=== PATIENT | male | born 1955 | race Caucasian/White ===

== ENCOUNTER 2016-07-01 06:27 | Day surgery (SDC) | payer MEDICAID ==
[~2016-07-01 06:27] MED LIST: Sodium Chloride 0.9% 1,000 ML IV SCH
[2016-07-01] MEDS ORDERED: Propofol 200 MG/20 ML SDV ONE ×3 (07:14→08:02)
[2016-07-01] MEDS ORDERED: Midazolam 1 MG/ML 2 ML SDV ONE (07:15)
[2016-07-01] MEDS ORDERED: fentaNYL 100 MCG/2 ML SDV ONE (07:15)
[2016-07-01 09:02] VITALS: BP 138/76
--- NOTE | 2016-07-01 14:11 | OR ---
DATE OF PROCEDURE: 07/01/2016 PROCEDURE: Colonoscopy. FINDINGS: 1. Very mild inflammation in the ileocecal valve (biopsied using cold biopsy forceps). 2. Rectal polyp, 5 mm, completely removed using cold biopsy forceps. COMPLICATIONS: None. ASP WEB DEVELOPER: None. ANESTHESIA: MAC. INDICATIONS: Screening colonoscopy. DESCRIPTION OF PROCEDURE: The patient was placed in left lateral decubitus position. Digital rectal exam was performed without abnormality. The scope was introduced and advanced atraumatically to the ileocecal valve. The ileocecal valve showed some very mild inflammation. This was biopsied using cold biopsy forceps. The scope was brought back to the remainder of the colon. In the rectum, there was a very small, probably hyperplastic polyp, which was completely removed using cold biopsy forceps. No abnormalities on retroflexion. The patient had diverticulosis, which was described as mild. This was most limited to sigmoid colon. Of note, the prep was moderately acceptable, and the patient consumed some apparent type of orange drink, thus making evaluation more challenging. The patient tolerated the procedure well. Luke Caldwell MD /[id number]
== END 2016-07-01 09:12 | disposition home or self-care (01) ==
LOC: JP.SDS 06:27
PROVIDERS: ATTEND Surgery
DX: Z12.11 Encounter for screening for malignant neoplasm of colon (principal); K52.9 Noninfective gastroenteritis and colitis, unspecified; K62.1 Rectal polyp; E11.49 Type 2 diabetes mellitus with other diabetic neurological complication; E78.2 Mixed hyperlipidemia; I25.10 Atherosclerotic heart disease of native coronary artery without angina pectoris; E11.621 Type 2 diabetes mellitus with foot ulcer; E11.42 Type 2 diabetes mellitus with diabetic polyneuropathy; E66.9 Obesity, unspecified; Z68.31 Body mass index [BMI] 31.0-31.9, adult; K29.70 Gastritis, unspecified, without bleeding; F33.9 Major depressive disorder, recurrent, unspecified; Z79.899 Other long term (current) drug therapy; Z79.4 Long term (current) use of insulin; Z79.82 Long term (current) use of aspirin; Z88.8 Allergy status to other drugs, medicaments and biological substances
CPT/HCPCS: 45380; J2250; J2704; J3010; J7040; 88305

== ENCOUNTER 2016-11-04 17:10 | Inpatient (IN) | payer MEDICAID ==
[2016-11-04] MEDS ORDERED: Acetaminophen 325 MG Tab PO PRN (17:59)
[2016-11-04] MEDS ORDERED: Ondansetron 4 MG Tab.DIS PO PRN (17:59)
[2016-11-04] MEDS ORDERED: Polyethylene Glycol 3350 Powder 17 GM Packet PO PRN (17:59)
[2016-11-04] MEDS ORDERED: Sodium Chloride 0.9% 10 ML Syringe FLUSH PRN (17:59)
[2016-11-04] MEDS: Sodium Chloride 0.9% 1,000 ML IV SCH (18:00)
--- NOTE | 2016-11-04 18:09 | PCM.HP ---
H&P History of Present Illness - General Date of Service: 11/04/16 Admit Problem/Dx: Admission Diagnosis/Problem Admission Diagnosis/Problem Osteomyelitis of toe of left foot Source of Information: Patient, Provider History Limitations: Reports: No Limitations - History of Present Illness Initial Comments - Free Text/Narative: Julius presents as a direct admission from the podiatry clinic where he presented with drainage from his left second toe. He first noticed this drainage yesterday that has progressed since that time. He does not report significant pain in his foot but does have a history of neuropathy. He has not had any fevers or chills. Appetite and energy have been normal. No complaints of shortness of breath, abdominal pain or vomiting. No recent diarrhea. He has been on clindamycin for most of the month after a recent episode of osteomyelitis in the same told that required partial amputation. He was evaluated in the clinic by Dr. Adame and there was concern for progressive osteomyelitis with worsening erosions noted on the second toe. He also had a foul-smelling and. Went drainage from the toe. He was sent for direct admission and IV antibiotics. - Related Data Allergies/Adverse Reactions: Allergies Allergy/AdvReac Type Severity Reaction Status Date / Time atorvastatin [From Lipitor] Allergy Cannot Verified 07/01/16 06:52 Remember Iakqrtn-Hqc-Oco Reductase Allergy Cannot Verified 07/01/16 06:52 Inhibitor Remember Home Medications: Home Meds Aspirin [Adult Low Dose Aspirin EC] 81 mg PO DAILY 06/16/13 [History] Gabapentin [Neurontin] 1,200 mg PO BID 06/16/13 [History] Insulin Glarg,Human.Rec.Analog [LantUS] 65 unit SQ DAILY 06/16/13 [History] Cholecalciferol (Vitamin D3) [Vitamin D3] 5,000 unit PO DAILY 06/27/16 [History] Dulaglutide [Trulicity] 1.5 mg SQ WEEKLY 06/27/16 [History] Fluticasone Propionate [Flonase] 1 spray YAAKOV DAILY PRN 06/27/16 [History] Gemfibrozil [Lopid] 600 mg PO BID 06/27/16 [History] Sildenafil Citrate [Sildenafil] 100 mg PO ASDIRECTED PRN 06/27/16 [History] Enalapril [Vasotec] 5 mg PO DAILY 11/04/16 [History] metFORMIN HCl [Metformin HCl] 1,000 mg PO BIDAC 11/04/16 [History] Past Medical History HEENT History: Reports: Cataract, Other (See Below) Other HEENT History: Pockets on the retina Respiratory History: Reports: Sleep Apnea Musculoskeletal History: Reports: Amputation Other Musculoskeletal History: Partial left big toe Endocrine/Metabolic History: Reports: Diabetes, Type II - Past Surgical History HEENT Surgical History: Reports: Cataract Surgery Social & Family History - Family History Cardiac: Denies: CAD - Tobacco Use Smoking Status *Q: Former Smoker Years of Tobacco use: 20 Packs/Tins Daily: 1 Used Tobacco, but Quit: Yes Month Tobacco Last Used: uknown Second Hand Smoke Exposure: No - Caffeine Use Caffeine Use: Reports: Coffee Other Caffeine Use: 1 cup per day coffee - Alcohol Use Days Per Week of Alcohol Use: 2 Number of Drinks Per Day: 1 Total Drinks Per Week: 2 Date of Last Drink: 10/23/16 - Recreational Drug Use Recreational Drug Use: No H&P Review of Systems - Review of Systems: Review Of Systems: See Below Free Text/Narrative: A complete 12 point review of systems was obtained. Pertinent positives and negatives are noted in the history of present illness. All other systems were reviewed and were negative except as noted. Exam - Exam Exam: See Below - Vital Signs Vital Signs: Last Vital Signs Temp 36.5 C 11/04/16 17:51 Pulse 95 11/04/16 17:51 Resp 18 11/04/16 17:51 BP 124/65 11/04/16 17:51 Pulse Ox 94 L 11/04/16 17:51 Weight: 91.626 kg - Exam Quality Assessment: No: Supplemental Oxygen General: Alert, Oriented, Cooperative. No: Mild Distress HEENT: Conjunctiva Clear, Mucosa Moist & [place]. No: Scleral Icterus Neck: Supple, Trachea Midline Lungs: Clear to Auscultation, Normal Respiratory Effort Cardiovascular: Regular Rate, Regular Rhythm. No: Systolic Murmur GI/Abdominal Exam: Normal Bowel Sounds, Soft, Non-Tender, No Distention Back Exam: Normal Inspection, Full Range of Motion Extremities: Pedal Edema (Trace bilateral ankle edema), Other (Left great toe is amputated and left second toe is wrapped with intact dressings and covered with Coban) Peripheral Pulses: 2+: Dorsalis Pedis (L), Dorsalis Pedis (R) Skin: Warm, Dry, Wound (2 shallow ulcerations over the right anterior meeks. These are dry do not have any drainage.) Neuro Extensive - Mental Status: Alert, Oriented x3, Nl Response to Commands Neuro Extensive - Motor, Sensory, Reflexes: CN II-XII Intact. No: Dysarthria, Abnormal Motor, Tremor Psychiatric: Alert, Normal Affect - Patient Data Lab Results Last 24 hrs: White count is normal creatinine is 1.7 with a baseline of 0.9 Lactic acid is 1.6 blood cultures are pending Imaging Impressions Last 24 hrs: X-ray of the left foot - images suspicious for osteomyelitis of the remainder of the second toe on the left *Q Meaningful Use (ADM) - VTE *Q VTE Criteria *Q: VTE Mechanical Contraindications *Q: Bilateral Lower Dermatits VTE Pharmacological Contraindications *Q: Patient Scheduled Surgery - VTE Risk Assess *Q Each Risk Factor Represents 1 Point: Minor Surgery Planned, Swollen Legs, Current, Obesity (BMI greater than 30) Total Score 1 Point Risk Factors: 3 Each Risk Factor Represents 2 Points: Age 60 - 74 Years Total Score 2 Point Risk Factors: 2 Each Risk Factor Represents 3 Points: None Total Score 3 Point Risk Factors: 0 Each Risk Factor Represents 5 Points: None Total Score 5 Point Risk Factors: 0 Venous Thromboembolism Risk Factor Score *Q: 5 - Stroke *Q Stroke Criteria *Q: - AMI *Q AMI Criteria *Q: - Problem List (1) Osteomyelitis of toe of left foot SNOMED Code(s): 39216336 ICD Code: M86.9 - OSTEOMYELITIS, UNSPECIFIED Status: Acute Current Visit : Yes Problem Details: Left second toe (2) Type 2 diabetes mellitus with complication, with long-term current use of insulin SNOMED Code(s): 51566976, 888194265, 747256579 ICD Code: E11.8 - TYPE 2 DIABETES MELLITUS WITH UNSPECIFIED COMPLICATIONS; Z79.4 - USP (CURRENT) USE OF INSULIN Status: Chronic Current Visit: Yes (3) Acute kidney injury SNOMED Code(s): 36163978 ICD Code: N17.9 - ACUTE KIDNEY FAILURE, UNSPECIFIED Status: Acute Current Visit: Yes Problem List Initiated/Reviewed/Updated: Yes Orders Last 24hrs: Active Orders 24 hr Category Date Time Status Patient Status [ADT] Routine ADT 11/04/16 17:59 Ordered Communication Order [RC] PRN Care 11/04/16 18:04 Ordered Communication Order [RC] PRN Care 11/04/16 18:04 Ordered Diabetes Education [RC] Click to Edit Care 11/04/16 18:04 Ordered Intake and Output [RC] QSHIFT Care 11/04/16 18:00 Ordered Notify Provider Consults [RC] ASDIRECTED Care 11/04/16 18:03 Ordered Notify Provider Vital Signs [RC] ASDIRECTED Care 11/04/16 18:00 Ordered Notify Provider [RC] PRN Care 11/04/16 18:04 Ordered Oxygen Therapy [RC] PRN Care 11/04/16 17:59 Ordered Peripheral IV Care [RC] . DIRECTED Care 11/04/16 18:03 Ordered Up With Assistance [RC] ASDIRECTED Care 11/04/16 17:59 Ordered VTE/DVT Education [RC] Per Unit Routine Care 11/04/16 17:59 Ordered Vital Signs [RC] Q4H Care 11/04/16 17:59 Ordered Consult to Physician [CONS] Routine Cons 11/04/16 17:59 Ordered Consistent Carbohydrate Diet [DIET] Diet 11/04/16 Dinner Ordered Nothing per Oral After Midnight Diet [DIET] Diet 11/05/16 Breakfast Ordered BASIC METABOLIC PANEL,BMP [CHEM] AM Lab 11/05/16 05:11 Ordered BASIC METABOLIC PANEL,BMP [CHEM] AM Lab 11/06/16 05:11 Ordered CBC W/O DIFF,HEMOGRAM [HEME] AM Lab 11/05/16 05:11 Ordered CBC W/O DIFF,HEMOGRAM [HEME] AM Lab 11/06/16 05:11 Ordered GLUCOSE POC LAB TO COLLECT [POC] QIDACANDBED Lab 11/04/16 21:00 Ordered GLUCOSE POC LAB TO COLLECT [POC] QIDACANDBED Lab 11/05/16 07:30 Ordered GLUCOSE POC LAB TO COLLECT [POC] QIDACANDBED Lab 11/05/16 11:30 Ordered GLUCOSE POC LAB TO COLLECT [POC] QIDACANDBED Lab 11/05/16 16:30 Ordered GLUCOSE POC LAB TO COLLECT [POC] QIDACANDBED Lab 11/05/16 21:00 Ordered GLUCOSE POC LAB TO COLLECT [POC] QIDACANDBED Lab 11/06/16 07:30 Ordered GLUCOSE POC LAB TO COLLECT [POC] QIDACANDBED Lab 11/06/16 11:30 Ordered GLUCOSE POC LAB TO COLLECT [POC] QIDACANDBED Lab 11/06/16 16:30 Ordered GLUCOSE POC LAB TO COLLECT [POC] QIDACANDBED Lab 11/06/16 21:00 Ordered GLUCOSE POC LAB TO COLLECT [POC] QIDACANDBED Lab 11/07/16 07:30 Ordered GLUCOSE POC LAB TO COLLECT [POC] QIDACANDBED Lab 11/07/16 11:30 Ordered GLUCOSE POC LAB TO COLLECT [POC] QIDACANDBED Lab 11/07/16 16:30 Ordered GLUCOSE POC LAB TO COLLECT [POC] QIDACANDBED Lab 11/07/16 21:00 Ordered GLUCOSE POC LAB TO COLLECT [POC] QIDACANDBED Lab 11/08/16 07:30 Ordered GLUCOSE POC LAB TO COLLECT [POC] QIDACANDBED Lab 11/08/16 11:30 Ordered GLUCOSE POC LAB TO COLLECT [POC] QIDACANDBED Lab 11/08/16 16:30 Ordered GLUCOSE POC LAB TO COLLECT [POC] QIDACANDBED Lab 11/08/16 21:00 Ordered GLUCOSE POC LAB TO COLLECT [POC] QIDACANDBED Lab 11/09/16 07:30 Ordered GLUCOSE POC LAB TO COLLECT [POC] QIDACANDBED Lab 11/09/16 11:30 Ordered GLUCOSE POC LAB TO COLLECT [POC] QIDACANDBED Lab 11/09/16 16:30 Ordered GLUCOSE POC LAB TO COLLECT [POC] QIDACANDBED Lab 11/09/16 21:00 Ordered GLUCOSE POC LAB TO COLLECT [POC] QIDACANDBED Lab 11/10/16 07:30 Ordered Acetaminophen [Tylenol] Med 11/04/16 17:59 Ordered 650 mg PO Q4H PRN Acetaminophen/HYDROcodone [[place] 325-5 MG] Med 11/04/16 17:59 Ordered 1 tab PO Q4H PRN Aspirin [Halfprin] Med 11/05/16 09:00 Ordered 81 mg PO DAILY Docusate Sodium/Sennosides [Senna Plus] Med 11/04/16 17:59 Ordered 1 tab PO BID PRN Gabapentin [Neurontin] Med 11/04/16 21:00 Ordered 1,200 mg PO BID Gemfibrozil [Lopid] Med 11/04/16 21:00 Ordered 600 mg PO BID Insulin Aspart [NovoLOG] Med 11/04/16 18:15 Ordered See Protocol SUBCUT ASDIRECTED Insulin Detemir [Levemir] Med 11/05/16 09:00 Ordered 40 unit SUBCUT DAILY Meropenem [Merrem] 1 gm Med 11/04/16 18:15 Ordered Sodium Chloride 0.9% [Normal Saline] 50 ml IV Q12H Ondansetron [Zofran ODT] Med 11/04/16 17:59 Ordered 4 mg PO Q6H PRN Polyethylene Glycol 3350 [MiraLAX] Med 11/04/16 17:59 Ordered 17 gm PO DAILY PRN Sodium Chloride 0.9% @ 125 MLS/HR (1000ml) Med 11/04/16 18:00 Ordered Sodium Chloride 0.9% [Normal Saline] 1,000 ml IV ASDIRECTED Sodium Chloride 0.9% [Saline Flush] Med 11/04/16 17:59 Ordered 10 ml FLUSH ASDIRECTED PRN Vancomycin 1.5 gm Med 11/04/16 19:00 Ordered Sodium Chloride 0.9% [Normal Saline] 250 ml IV Q24H Peripheral IV Insertion Adult [OM.PC] Routine Oth 11/04/16 17:59 Ordered VTE Mechanical Contraindications [AST] Per Unit Routine Oth 11/04/16 17:59 Ordered VTE Pharmacological Contraindications [AST] Per Unit Oth 11/04/16 17:59 Ordered Routine Resuscitation Status Routine Resus Stat 11/04/16 17:59 Ordered Assessment/Plan Comment:: Assessment and plan - Osteomyelitis of the left second toe - fairly rapid progression of infection though patient is not systemically ill at this time. He has been on recent antibiotics. Surgical intervention is planned tomorrow morning. I believe he is an appropriate surgical candidate and is in optimal achievable medical condition at this time. With recent antibiotics he would benefit from expanded spectrum antibiotic coverage until cultures can be finalized. Blood cultures have been collected. -Meropenem and vancomycin with renal dosing -Consult to Dr. Adame for surgical intervention in the morning with second toe amputation planned -Pain control -Follow-up cultures Acute kidney injury - probably secondary to infection with possible contribution from his HERBIE inhibitor. Blood pressures on the low side in the clinic but normal here so far. 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 Has been better controlled as of late. -Partial dose of long-acting insulin with surgery planned -Sliding-scale insulin -4 times a day Accu-Cheks Maintenance issues - - DVT prophylaxis - enoxaparin will be initiated postoperatively - GI prophylaxis - not indicated - Nutrition - diabetic diet, nothing by mouth after midnight - Anderson catheter - not indicated CODE STATUS - full code Admission justification - This patient will be admitted for inpatient services and is medically appropriate meeting medical necessity for inpatient admission as outlined in my documentation. I reasonably expect the patient will require inpatient services that span a period time over 2 midnights. I reasonably expect this patient to be discharged or transferred within 96 hours after admission to the [facility]. Disposition - anticipate discharge to home after the hospital stay Primary care physician - Dr Trena Avalos M.D.
[2016-11-04] MEDS ORDERED: Gabapentin 300 MG Cap PO SCH (21:00)
[2016-11-04] MEDS ORDERED: Gemfibrozil 600 MG Tab PO SCH (21:00)
[2016-11-05] MEDS: Sodium Chloride 0.9% 1,000 ML IV SCH (03:48)
[2016-11-05] MEDS ORDERED: Lidocaine 2% 20 ML MDV ONE (07:19)
[2016-11-05] MEDS ORDERED: Bupivacaine 0.5% 50 ML MDV ONE (07:19)
[2016-11-05] MEDS: Gemfibrozil 600 MG Tab PO SCH ×2 (08:37→16:28)
[2016-11-05] MEDS ORDERED: Propofol 200 MG/20 ML SDV ONE (09:00)
[2016-11-05] MEDS ORDERED: fentaNYL 100 MCG/2 ML SDV ONE (09:00)
[2016-11-05] MEDS ORDERED: Insulin Detemir 100 Units/ML 3 ML Pen SUBCUT SCH (09:00)
[2016-11-05] MEDS ORDERED: Midazolam 1 MG/ML 2 ML SDV ONE (09:00)
[2016-11-05] MEDS: Aspirin 81 MG Tab.EC PO SCH (10:42)
[2016-11-05] MEDS: Gabapentin 400 MG Cap PO SCH ×2 (10:42→22:12)
--- NOTE | 2016-11-05 11:29 | OR ---
DATE OF PROCEDURE: 11/05/2016 BASTING MARKER: None. PREOPERATIVE DIAGNOSIS: Osteomyelitis, left 2nd toe. POSTOPERATIVE DIAGNOSIS: Osteomyelitis, left 2nd toe. PROCEDURE: Amputation of the left 2nd toe. ANESTHESIA: Local with IV sedation. HEMOSTASIS: None. ESTIMATED BLOOD LOSS: 10 mL. MATERIALS: None. INJECTABLES: None. PATHOLOGY: Left 2nd toe. CONDITION: Stable. INDICATIONS FOR SURGERY: Osteomyelitis, left 2nd toe. PROCEDURE IN DETAIL: The patient was brought to the operating room, placed on the operating table in supine position. Following IV sedation, anesthesia was obtained with a total of 10 mL of Marcaine 0.5% plain with lidocaine 2% plain. Left foot was then scrubbed, prepped, and draped in the usual aseptic manner, raised to 60 degrees for hemostasis and exsanguinated. No Esmarch was used. No tourniquet was inflated. A tennis racquet incision was made around the base of the left 2nd toe. Incisions were deepened straight down to bone and the left 2nd toe was disarticulated at the metatarsophalangeal joint. The skin at the edges of the tissue were checked to make sure that they were healthy and they were and the head of the 2nd metatarsal was hard and healthy with no discoloration. The incision was flushed out with copious amounts of sterile saline and then skin closure was obtained with 3- 0 and 4-0 nylon in a simple interrupted configuration and two small Jarad drains were caught down to 2 to 3 mm wide strips and placed one in the distal aspect of the incision, one in the proximal aspect of the incision. The foot was dressed with dry sterile dressing consisting of Xeroform, 4x4s, Kerlix, and Coban. The patient was returned to recovery room with vital signs stable and vascular status intact to both feet. The patient was told to remain on orders and continue to remain nonweightbearing on the left foot and to keep dressings clean, dry, and intact for two days, and change and remove drains. Podiatry to follow in one week. Dalton Adame DPM /[id number]
[2016-11-05] MEDS ORDERED: Sodium Chloride 0.9% 1,000 ML IV SCH (11:30)
--- NOTE | 2016-11-05 11:31 | PCM.PN ---
- General Info Date of Service: 11/05/16 Functional Status: Reports: Pain Controlled, Tolerating Diet - Review of Systems General: Denies: Fever Gastrointestinal: Denies: Nausea Musculoskeletal: Denies: Foot Pain Systems Review Comment:: no acute events overnight. Blood pressure and vital signs have been stable. Blood sugars well-controlled. No significant pain in his foot. He had an uneventful amputation of the left second toe. No material was available for culture. Tolerating current antibiotics. - Patient Data Vitals - Most Recent: Last Vital Signs Temp 36.6 C 11/05/16 10:00 Pulse 83 11/05/16 10:00 Resp 10 L 11/05/16 10:00 BP 129/67 11/05/16 10:00 Pulse Ox 95 11/05/16 10:00 Weight - Most Recent: 91.626 kg I&O - Last 24 Hours: Intake & Output 11/04/16 11/05/16 11/05/16 22:59 06:59 14:59 Intake Total 568 3860 360 Output Total 1000 3700 250 Balance -432 160 110 Lab Results Last 24 Hours: Laboratory Results - last 24 hr 11/05/16 11/05/16 Range/Units 05:11 05:11 WBC 7.7 (4.5-11.0) K/uL RBC 4.15 L (4.30-5.90) M/uL Hgb 11.8 L (12.0-15.0) g/dL Hct 35.5 L (40.0-54.0) % MCV 86 (80-98) fL MCH 28 (27-31) pg MCHC 33 (32-36) % Plt Count 264 (150-400) K/uL Sodium 137 L (140-148) mmol/L Potassium 4.2 (3.6-5.2) mmol/L Chloride 104 (100-108) mmol/L Carbon Dioxide 24 (21-32) mmol/L Anion Gap 13.2 (5.0-14.0) mmol/L BUN 23 H (7-18) mg/dL Creatinine 1.0 (0.8-1.3) mg/dL Est Cr Clr Drug Dosing 75.05 mL/min Estimated GFR (MDRD) > 60 (>60) Glucose 98 (74-106) mg/dL Calcium 9.0 (8.5-10.1) mg/dL Med Orders - Current: Current Medications Acetaminophen (Tylenol) 650 mg PO Q4H PRN PRN Reason: Pain (Mild 1-3)/fever Hydrocodone Bitart/Acetaminophen ([place] 325-5 Mg) 1 tab PO Q4H PRN PRN Reason: Pain (moderate 4-6) Aspirin (Halfprin) 81 mg PO DAILY [facility] Last Admin: 11/05/16 10:42 Dose: 81 mg Gabapentin (Neurontin) 1,200 mg PO BID [facility] Last Admin: 11/05/16 10:42 Dose: 1,200 mg Gemfibrozil (Lopid) 600 mg PO BIDAC [facility] Last Admin: 11/05/16 08:37 Dose: Not Given Meropenem 1 gm/ Sodium (Chloride) 50 mls @ 100 mls/hr IV Q8H [facility] Vancomycin HCl 1.5 gm/ Sodium (Chloride) 250 mls @ 166.667 mls/hr IV Q12H [facility] Last Admin: 11/05/16 08:37 Dose: 166.667 mls/hr Sodium Chloride (Normal Saline) 1,000 mls @ 25 mls/hr IV ASDIRECTED [facility] Insulin Aspart (Novolog) 0 unit SUBCUT ASDIRECTED [facility] PRN Reason: Protocol Insulin Detemir (Levemir) 65 unit SUBCUT DAILY [facility] Ondansetron HCl (Zofran Odt) 4 mg PO Q6H PRN PRN Reason: Nausea able to take PO Pneumococcal Polyvalent Vaccine (Pneumovax 23) 0.5 ml IM .ONCE ONE Stop: 11/06/16 10:01 Polyethylene Glycol (Miralax) 17 gm PO DAILY PRN PRN Reason: Constipation Senna/Docusate Sodium (Senna Plus) 1 tab PO BID PRN PRN Reason: Constipation Sodium Chloride (Saline Flush) 10 ml FLUSH ASDIRECTED PRN PRN Reason: Keep Vein Open Discontinued Medications Bupivacaine HCl (Marcaine 0.5%) Confirm Administered Dose 50 ml .ROUTE .STK-MED ONE Stop: 11/05/16 07:20 Last Admin: 11/05/16 09:10 Dose: 5 ml Fentanyl (Sublimaze) Confirm Administered Dose 100 mcg .ROUTE .STK-MED ONE Stop: 11/05/16 09:01 Gabapentin (Neurontin) 1,200 mg PO BID [facility] Last Admin: 11/04/16 20:22 Dose: 1,200 mg Gemfibrozil (Lopid) 600 mg PO BID [facility] Last Admin: 11/04/16 20:34 Dose: 600 mg Sodium Chloride (Normal Saline) 1,000 mls @ 125 mls/hr IV ASDIRECTED [facility] Last Admin: 11/05/16 03:48 Dose: 125 mls/hr Meropenem 1 gm/ Sodium (Chloride) 50 mls @ 100 mls/hr IV Q12H [facility] Last Admin: 11/05/16 05:14 Dose: 100 mls/hr Vancomycin HCl 1.5 gm/ Sodium (Chloride) 250 mls @ 150 mls/hr IV Q24H [facility] Last Admin: 11/04/16 20:20 Dose: 150 mls/hr Insulin Detemir (Levemir) 40 unit SUBCUT DAILY [facility] Last Admin: 11/05/16 10:42 Dose: 40 units Lidocaine HCl (Xylocaine 2%) Confirm Administered Dose 20 ml .ROUTE .STK-MED ONE Stop: 11/05/16 07:20 Last Admin: 11/05/16 09:10 Dose: 5 ml Midazolam HCl (Versed 1 Mg/Ml) Confirm Administered Dose 2 mg .ROUTE .STK-MED ONE Stop: 11/05/16 09:01 Propofol (Diprivan 20 Ml) Confirm Administered Dose 200 mg .ROUTE .STK-MED ONE Stop: 11/05/16 09:01 - Exam Quality Assessment: No: Supplemental Oxygen General: Alert, Oriented, Cooperative, No Acute Distress Neck: Supple Lungs: Normal Respiratory Effort GI/Abdominal Exam: Soft, No Distention Extremities: No Pedal Edema Skin: Warm, Dry Psy/Mental Status: Alert, Normal Affect - Problem List & Annotations (1) Osteomyelitis of toe of left foot SNOMED Code(s): 88268053 Code(s): M86.9 - OSTEOMYELITIS, UNSPECIFIED Status: Acute Current Visit: Yes Annotation/Comment:: Left second toe (2) Type 2 diabetes mellitus with complication, with long-term current use of insulin SNOMED Code(s): 80479639, 866107256, 757149148 Code(s): E11.8 - TYPE 2 DIABETES MELLITUS WITH UNSPECIFIED COMPLICATIONS; 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 Status: Chronic Current Visit: Yes (3) Acute kidney injury SNOMED Code(s): 87317229 Code(s): N17.9 - ACUTE KIDNEY FAILURE, UNSPECIFIED Status: Acute Current Visit: Yes - Problem List Review Problem List Initiated/Reviewed/Updated: Yes - My Orders Last 24 Hours: My Active Orders 11/04/16 17:59 Patient Status [ADT] Routine Oxygen Therapy [RC] PRN Up With Assistance [RC] ASDIRECTED VTE/DVT Education [RC] Per Unit Routine Vital Signs [RC] Q4H Consult to Physician [CONS] Routine Acetaminophen [Tylenol] 650 mg PO Q4H PRN Acetaminophen/HYDROcodone [[place] 325-5 MG] 1 tab PO Q4H PRN Docusate Sodium/Sennosides [Senna Plus] 1 tab PO BID PRN Ondansetron [Zofran ODT] 4 mg PO Q6H PRN Polyethylene Glycol 3350 [MiraLAX] 17 gm PO DAILY PRN Sodium Chloride 0.9% [Saline Flush] 10 ml FLUSH ASDIRECTED PRN Peripheral IV Insertion Adult [OM.PC] Routine VTE Mechanical Contraindications [AST] Per Unit Routine VTE Pharmacological Contraindications [AST] Per Unit Routine Resuscitation Status Routine 11/04/16 18:00 Intake and Output [RC] QSHIFT Notify Provider Vital Signs [RC] ASDIRECTED 11/04/16 18:03 Notify Provider Consults [RC] ASDIRECTED Peripheral IV Care [RC] . DIRECTED 11/04/16 18:04 Communication Order [RC] PRN Communication Order [RC] PRN Diabetes Education [RC] Click to Edit Notify Provider [RC] PRN 11/04/16 18:15 Insulin Aspart [NovoLOG] See Protocol SUBCUT ASDIRECTED 11/05/16 07:30 Gemfibrozil [Lopid] 600 mg PO BIDAC 11/05/16 09:00 Aspirin [Halfprin] 81 mg PO DAILY Gabapentin [Neurontin] 1,200 mg PO BID Vancomycin 1.5 gm Sodium Chloride 0.9% [Normal Saline] 250 ml IV Q12H 11/05/16 10:36 Central Line Assessment [RC] QSHIFT Central Line PICC Insertion [Central Venous Line Insertion] [OM.PC] Routine 11/05/16 11:30 Sodium Chloride 0.9% [Normal Saline] 1,000 ml IV ASDIRECTED 11/05/16 14:00 Meropenem [Merrem] 1 gm Sodium Chloride 0.9% [Normal Saline] 50 ml IV Q8H 11/05/16 16:30 GLUCOSE POC LAB TO COLLECT [POC] QIDACANDBED 11/05/16 21:00 GLUCOSE POC LAB TO COLLECT [POC] QIDACANDBED 11/06/16 05:11 BASIC METABOLIC PANEL,BMP [CHEM] AM CBC W/O DIFF,HEMOGRAM [HEME] AM 11/06/16 07:30 GLUCOSE POC LAB TO COLLECT [POC] QIDACANDBED 11/06/16 09:00 Insulin Detemir [Levemir] 65 unit SUBCUT DAILY 11/06/16 10:00 Pneumococcal Polyvalent-23 Vac [Pneumovax 23] 0.5 ml IM .ONCE ONE 11/06/16 11:30 GLUCOSE POC LAB TO COLLECT [POC] QIDACANDBED 11/06/16 16:30 GLUCOSE POC LAB TO COLLECT [POC] QIDACANDBED 11/06/16 21:00 GLUCOSE POC LAB TO COLLECT [POC] QIDACANDBED 11/07/16 07:30 GLUCOSE POC LAB TO COLLECT [POC] QIDACANDBED 11/07/16 08:45 VANCOMYCIN TROUGH [CHEM] Timed 11/07/16 11:30 GLUCOSE POC LAB TO COLLECT [POC] QIDACANDBED 11/07/16 16:30 GLUCOSE POC LAB TO COLLECT [POC] QIDACANDBED 11/07/16 21:00 GLUCOSE POC LAB TO COLLECT [POC] QIDACANDBED 11/08/16 07:30 GLUCOSE POC LAB TO COLLECT [POC] QIDACANDBED 11/08/16 11:30 GLUCOSE POC LAB TO COLLECT [POC] QIDACANDBED 11/08/16 16:30 GLUCOSE POC LAB TO COLLECT [POC] QIDACANDBED 11/08/16 21:00 GLUCOSE POC LAB TO COLLECT [POC] QIDACANDBED 11/09/16 07:30 GLUCOSE POC LAB TO COLLECT [POC] QIDACANDBED 11/09/16 11:30 GLUCOSE POC LAB TO COLLECT [POC] QIDACANDBED 11/09/16 16:30 GLUCOSE POC LAB TO COLLECT [POC] QIDACANDBED 11/09/16 21:00 GLUCOSE POC LAB TO COLLECT [POC] QIDACANDBED 11/10/16 07:30 GLUCOSE POC LAB TO COLLECT [POC] QIDACANDBED - Plan Plan:: Assessment and plan - Osteomyelitis of the left second toe - status post amputation of the left second toe on 11/05. Case discussed with Dr. Adame and 2 weeks of IV antibiotics was recommended. -Meropenem and vancomycin x48 hours -PICC line placement -plan for 2 weeks of IV antibiotic therapy with vancomycin and less cultures dictate otherwise -Pain control -Follow-up cultures Acute kidney injury - probably secondary to infection with possible contribution from his HERBIE inhibitor. kidney function back to normal. 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 blood sugars well-controlled. -restart usual dosage tomorrow morning -Sliding-scale insulin -4 times a day Accu-Cheks Maintenance issues - - DVT prophylaxis - enoxaparin will be initiated postoperatively - GI prophylaxis - not indicated - Nutrition - diabetic diet, nothing by mouth after midnight Disposition - anticipate discharge to home after the hospital stay, likely after 48 additional hours of IV antibiotic therapy Primary care physician - Dr Trena Avalos M.D.
[2016-11-05] MEDS: Acetaminophen/HYDROcodone 325-5 MG Tab PO PRN (19:25)
[2016-11-05] MEDS: Insulin Aspart 100 Units/ML 3 ML Pen SUBCUT SCH (22:30)
[2016-11-06] MEDS: Gemfibrozil 600 MG Tab PO SCH ×2 (08:02→17:09)
[2016-11-06] MEDS: Gabapentin 400 MG Cap PO SCH ×2 (08:02→21:54)
[2016-11-06] MEDS: Aspirin 81 MG Tab.EC PO SCH (08:03)
[2016-11-06] MEDS: Insulin Detemir 100 Units/ML 3 ML Pen SUBCUT SCH (08:04)
[2016-11-06] MEDS: Insulin Aspart 100 Units/ML 3 ML Pen SUBCUT SCH ×4 (08:05→21:53)
[2016-11-06] MEDS: Acetaminophen/HYDROcodone 325-5 MG Tab PO PRN ×2 (08:07→19:42)
[2016-11-06] MEDS ORDERED: Pneumococcal Polyvalent-23 Vaccine 0.5 ML SDV IM ONE (10:00)
--- NOTE | 2016-11-06 12:19 | CONS ---
DATE OF SERVICE: 11/06/2016 REFERRING PHYSICIAN: CONSULTING PHYSICIAN: Luke Caldwell MD REASON FOR CONSULTATION: Evaluation of left 2nd toe. HISTORY OF PRESENT ILLNESS: This is a 61-year-old male, who on 04/24/2016 underwent a left 2nd toe amputation for osteomyelitis. This was noted in the clinic by Dr. Adame where he had drainage from this and was subsequently diagnosed with osteomyelitis. PAST MEDICAL HISTORY: Type 2 diabetes, history of previous toe amputation, sleep apnea, including cataract surgery. SOCIAL HISTORY: He is a former smoker. FAMILY HISTORY: Noncontributory. REVIEW OF SYSTEMS: GENERAL: The patient has no concerns. HEENT: History of cataracts. NECK: No symptoms. CARDIOVASCULAR: No history of myocardial infarction. RESPIRATORY: No history of asthma. GASTROINTESTINAL: No symptoms. NEUROLOGICAL: No symptoms. PSYCH: No symptoms. The remainder of systems was reviewed and is negative. PHYSICAL EXAMINATION: VITAL SIGNS: Temperature 95.5, blood pressure 126/69, respirations 16, and pulse 98%. HEENT: Pupils are equal. NECK: Supple. LUNGS: Clear. CARDIOVASCULAR: Regular rhythm and rate. ABDOMEN: Bowel sounds positive. EXTREMITIES: Full range of motion. The toe amputation site shows no evidence of osteomyelitis or infection. IMAGING: I did review the MRI which showed distal phalanx erosions, cellulitis, and concern for osteomyelitis. ASSESSMENT: Status post toe amputation. PLAN: Continue the same dressing plan, Xeroform with using HERBIE and Kerlix. I will leave the drain in today. He is a to work on activity per Dr. Adame per previous orders. I will continue to follow him. Luke Caldwell MD /[phone]
--- NOTE | 2016-11-06 15:13 | PCM.PN ---
- General Info Date of Service: 11/06/16 Functional Status: Reports: Pain Controlled, Tolerating Diet - Review of Systems General: Denies: Fever Musculoskeletal: Reports: Foot Pain Systems Review Comment:: No acute events overnight. No fevers. Minimal pain in his foot. Blood sugars have been acceptable. He is getting around well with his scooter. Blood cultures remain negative. - Patient Data Vitals - Most Recent: Last Vital Signs Temp 35.5 C 11/06/16 12:02 Pulse 76 11/06/16 12:02 Resp 16 11/06/16 12:02 BP 122/71 11/06/16 12:02 Pulse Ox 95 11/06/16 12:02 Weight - Most Recent: 91.626 kg I&O - Last 24 Hours: Intake & Output 11/06/16 11/06/16 11/06/16 06:59 14:59 22:59 Intake Total 970 1090 Output Total 1600 2500 Balance -630 -1410 Lab Results Last 24 Hours: Laboratory Results - last 24 hr 11/06/16 11/06/16 11/06/16 Range/Units 05:45 05:45 08:50 WBC 5.9 (4.5-11.0) K/uL RBC 4.13 L (4.30-5.90) M/uL Hgb 11.5 L (12.0-15.0) g/dL Hct 35.4 L (40.0-54.0) % MCV 86 (80-98) fL MCH 28 (27-31) pg MCHC 33 (32-36) % Plt Count 272 (150-400) K/uL Sodium 138 L (140-148) mmol/L Potassium 4.6 (3.6-5.2) mmol/L Chloride 104 (100-108) mmol/L Carbon Dioxide 27 (21-32) mmol/L Anion Gap 11.6 (5.0-14.0) mmol/L BUN 18 (7-18) mg/dL Creatinine 0.9 (0.8-1.3) mg/dL Est Cr Clr Drug Dosing 83.70 mL/min Estimated GFR (MDRD) > 60 (>60) Glucose 158 H (74-106) mg/dL Calcium 8.9 (8.5-10.1) mg/dL Vancomycin Trough 10.2 (10.0-20.0) ug/mL Med Orders - Current: Current Medications Acetaminophen (Tylenol) 650 mg PO Q4H PRN PRN Reason: Pain (Mild 1-3)/fever Hydrocodone Bitart/Acetaminophen ([place] 325-5 Mg) 1 tab PO Q4H PRN PRN Reason: Pain (moderate 4-6) Last Admin: 11/06/16 08:07 Dose: 1 tab Aspirin (Halfprin) 81 mg PO DAILY [facility] Last Admin: 11/06/16 08:03 Dose: 81 mg Gabapentin (Neurontin) 1,200 mg PO BID [facility] Last Admin: 11/06/16 08:02 Dose: 1,200 mg [facility] Admin: 11/06/16 08:02 Dose: 600 mg Meropenem 1 gm/ Sodium (Chloride) 50 mls @ 100 mls/hr IV Q8H [facility] Last Admin: 11/06/16 14:25 Dose: 100 mls/hr Sodium Chloride (Normal Saline) 1,000 mls @ 25 mls/hr IV ASDIRECTED [facility] Last Admin: 11/05/16 14:59 Dose: 25 mls/hr Vancomycin HCl 1.75 gm/ Sodium (Chloride) 250 mls @ 166.667 mls/hr IV Q12H [facility] Insulin Aspart (Novolog) 0 unit SUBCUT ASDIRECTED [facility] PRN Reason: Protocol Last Admin: 11/06/16 11:56 Dose: 2 units Insulin Detemir (Levemir) 65 unit SUBCUT DAILY [facility] Last Admin: 11/06/16 08:04 Dose: 65 units Ondansetron HCl (Zofran Odt) 4 mg PO Q6H PRN PRN Reason: Nausea able to take PO Polyethylene Glycol (Miralax) 17 gm PO DAILY PRN PRN Reason: Constipation Senna/Docusate Sodium (Senna Plus) 1 tab PO BID PRN PRN Reason: Constipation Sodium Chloride (Saline Flush) 10 ml FLUSH ASDIRECTED PRN PRN Reason: Keep Vein Open Discontinued Medications Bupivacaine HCl (Marcaine 0.5%) Confirm Administered Dose 50 ml .ROUTE .STK-MED ONE Stop: 11/05/16 07:20 Last Admin: 11/05/16 09:10 Dose: 5 ml Fentanyl (Sublimaze) Confirm Administered Dose 100 mcg .ROUTE .STK-MED ONE Stop: 11/05/16 09:01 Gabapentin (Neurontin) 1,200 mg PO BID [facility] Last Admin: 11/04/16 20:22 Dose: 1,200 mg Gemfibrozil (Lopid) 600 mg PO BID [facility] Last Admin: 11/04/16 20:34 Dose: 600 mg Sodium Chloride (Normal Saline) 1,000 mls @ 125 mls/hr IV ASDIRECTED [facility] Last Admin: 11/05/16 03:48 Dose: 125 mls/hr Meropenem 1 gm/ Sodium (Chloride) 50 mls @ 100 mls/hr IV Q12H [facility] Last Admin: 11/05/16 05:14 Dose: 100 mls/hr Vancomycin HCl 1.5 gm/ Sodium (Chloride) 250 mls @ 150 mls/hr IV Q24H [facility] Last Admin: 11/04/16 20:20 Dose: 150 mls/hr Vancomycin HCl 1.5 gm/ Sodium (Chloride) 250 mls @ 166.667 mls/hr IV Q12H [facility] Last Admin: 11/06/16 10:47 Dose: 166.667 mls/hr Insulin Detemir (Levemir) 40 unit SUBCUT DAILY [facility] Last Admin: 11/05/16 10:42 Dose: 40 units Lidocaine HCl (Xylocaine 2%) Confirm Administered Dose 20 ml .ROUTE .STK-MED ONE Stop: 11/05/16 07:20 Last Admin: 11/05/16 09:10 Dose: 5 ml Midazolam HCl (Versed 1 Mg/Ml) Confirm Administered Dose 2 mg .ROUTE .STK-MED ONE Stop: 11/05/16 09:01 Pneumococcal Polyvalent Vaccine (Pneumovax 23) 0.5 ml IM .ONCE ONE Stop: 11/06/16 10:01 Propofol (Diprivan 20 Ml) Confirm Administered Dose 200 mg .ROUTE .STK-MED ONE Stop: 11/05/16 09:01 - Exam Quality Assessment: No: Supplemental Oxygen General: Alert, Oriented, Cooperative, No Acute Distress Neck: Supple Lungs: Normal Respiratory Effort GI/Abdominal Exam: Soft, No Distention Skin: Warm, Dry Psy/Mental Status: Alert, Normal Affect - Problem List & Annotations (1) Osteomyelitis of toe of left foot SNOMED Code(s): 24137579 Code(s): M86.9 - OSTEOMYELITIS, UNSPECIFIED Status: Acute Current Visit: Yes Annotation/Comment:: Left second toe (2) Type 2 diabetes mellitus with complication, with long-term current use of insulin SNOMED Code(s): 97552302, 990167994, 183277605 Code(s): E11.8 - TYPE 2 DIABETES MELLITUS WITH UNSPECIFIED COMPLICATIONS; Z79.4 - ALF (CURRENT) USE OF INSULIN Status: Chronic Current Visit: Yes (3) Acute kidney injury SNOMED Code(s): 60158595 Code(s): N17.9 - ACUTE KIDNEY FAILURE, UNSPECIFIED Status: Acute Current Visit: Yes - Problem List Review Problem List Initiated/Reviewed/Updated: Yes - My Orders Last 24 Hours: My Active Orders 11/06/16 09:00 Insulin Detemir [Levemir] 65 unit SUBCUT DAILY 11/06/16 16:30 GLUCOSE POC LAB TO COLLECT [POC] QIDACANDBED 11/06/16 21:00 GLUCOSE POC LAB TO COLLECT [POC] QIDACANDBED Vancomycin 1.75 gm Sodium Chloride 0.9% [Normal Saline] 250 ml IV Q12H 11/07/16 07:30 GLUCOSE POC LAB TO COLLECT [POC] QIDACANDBED 11/07/16 11:30 GLUCOSE POC LAB TO COLLECT [POC] QIDACANDBED 11/07/16 16:30 GLUCOSE POC LAB TO COLLECT [POC] QIDACANDBED 11/07/16 21:00 GLUCOSE POC LAB TO COLLECT [POC] QIDACANDBED 11/08/16 07:30 GLUCOSE POC LAB TO COLLECT [POC] QIDACANDBED 11/08/16 11:30 GLUCOSE POC LAB TO COLLECT [POC] QIDACANDBED 11/08/16 16:30 GLUCOSE POC LAB TO COLLECT [POC] QIDACANDBED 11/08/16 21:00 GLUCOSE POC LAB TO COLLECT [POC] QIDACANDBED 11/09/16 07:30 GLUCOSE POC LAB TO COLLECT [POC] QIDACANDBED 11/09/16 11:30 GLUCOSE POC LAB TO COLLECT [POC] QIDACANDBED 11/09/16 16:30 GLUCOSE POC LAB TO COLLECT [POC] QIDACANDBED 11/09/16 21:00 GLUCOSE POC LAB TO COLLECT [POC] QIDACANDBED 11/10/16 07:30 GLUCOSE POC LAB TO COLLECT [POC] QIDACANDBED - Plan Plan:: Assessment and plan - Osteomyelitis of the left second toe - status post amputation of the left second toe on 11/05. Case discussed with Dr. Adame and 2 weeks of IV antibiotics was recommended. -Meropenem and vancomycin x48 hours -Drain removal on -PICC line placement -plan for 2 weeks of IV antibiotic therapy with vancomycin unless cultures dictate otherwise -Pain control -Follow-up cultures Acute kidney injury - probably secondary to infection with possible contribution from his HERBIE inhibitor. kidney function back to normal. 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 blood sugars remain well-controlled. -Continue home dosing for long-acting insulin -Sliding-scale insulin -4 times a day Accu-Cheks Maintenance issues - - DVT prophylaxis - enoxaparin will be initiated postoperatively - GI prophylaxis - not indicated - Nutrition - diabetic diet, nothing by mouth after midnight Disposition - anticipate discharge to home after the hospital stay, likely tomorrow if stable overnight Primary care physician - Dr Trena Avalos M.D.
[2016-11-07] MEDS: Acetaminophen/HYDROcodone 325-5 MG Tab PO PRN ×2 (03:01→10:01)
[2016-11-07 08:20] VITALS: BP 134/68
[2016-11-07] MEDS: Gabapentin 400 MG Cap PO SCH (09:39)
[2016-11-07] MEDS: Aspirin 81 MG Tab.EC PO SCH (09:40)
[2016-11-07] MEDS: Gemfibrozil 600 MG Tab PO SCH (09:40)
[2016-11-07] MEDS: Insulin Aspart 100 Units/ML 3 ML Pen SUBCUT SCH (09:42)
[2016-11-07] MEDS: Insulin Detemir 100 Units/ML 3 ML Pen SUBCUT SCH (09:43)
--- NOTE | 2016-11-07 10:20 | PCM.DCSUM1 ---
Discharge Summary - Hospital Course Brief History: 61-year-old male with history of insulin-dependent diabetes and recent osteomyelitis involving part of his left second toe who presented from the clinic with left 2nd toe, redness swelling and osteomyelitis. - Discharge Data Discharge Date: 11/07/16 Discharge Disposition: Home, [facility] 06 Condition: Good - Discharge Diagnosis/Problem(s) (1) Osteomyelitis of toe of left foot SNOMED Code(s): 99654870 ICD Code: M86.9 - OSTEOMYELITIS, UNSPECIFIED Status: Acute Priority: Low Problem Details: Left second toe (2) Acute kidney injury SNOMED Code(s): 56728459 ICD Code: N17.9 - ACUTE KIDNEY FAILURE, UNSPECIFIED Status: Acute (3) Type 2 diabetes mellitus with complication, with long-term current use of insulin SNOMED Code(s): 90446271, 270925814, 551466672 ICD Code: E11.8 - TYPE 2 DIABETES MELLITUS WITH UNSPECIFIED COMPLICATIONS; 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: Chronic - Patient Summary/Data Operative Procedure(s) Performed: Dr Adame performed an amputation of the left second toe Consults: Consultations 11/04/16 17:59 Consult to Physician [CONS] Routine Consulting Provider: Dalton Adame Courtesy Call Completed to Consulting Physician: Yes Reason for Consult: left 2nd toe osteomyelitis Person Notified: Dr Adame Date Notified: 11/04/16 Special Instructions: planning amputation in the morning 11/05/16 10:24 Consult to Physician [CONS] Routine Consulting Provider: Luke Caldwell Courtesy Call Completed to Consulting Physician: Yes Reason for Consult: follow patient post-operatively and discharge Person Notified: jose antonio Date Notified: 11/05/16 Time Notified: 10:30 Labs Pending at D/C: final results of the blood cultures which are negative at 3 days Hospital Course: Julius presented as a direct admission from the podiatry clinic for amputation of his left second toe to manage osteomyelitis. He was admitted to the hospital and started on broad-spectrum antibiotics because he had been on outpatient antibiotics. There is no evidence for sepsis at the time of presentation. The morning after admission he had an uneventful eventful amputation of his left second toe. His postop course has been unremarkable as well. He has tolerated his antibiotics. Blood cultures have been negative. Lab work has been unremarkable. Pain has been well controlled. Diabetes has been well-controlled. Because this is his second episode of osteomyelitis in the past month we have elected to treat for 2 weeks with IV antibiotics. We have chosen vancomycin to cover gram-positive bacteria. No cultures were able to be obtained other than blood cultures which have been negative. He is tolerating these antibiotics well. We have set him up with home health care to help manage the antibiotics at home. He has a PICC line in place to receive the antibiotics through. He has done well during the hospital stay with excellent pain control. Daily dressing changes have revealed good healing. Both of his drains were removed. He will be discharged home today with 12 days of antibiotics. He will be following up in the podiatry clinic next week. - Patient Instructions Diet: Diabetic Diet Activity: As Tolerated, Non Weight Bearing (left foot) Showering/Bathing: May Shower Wound/Incision Care: Keep Operative Site/Wound Site Clean and Dry Notify Provider of: Fever, Increased Pain, Nausea and/or Vomiting Other/Special Instructions: 1. You were in the hospital for management of osteomyelitis involving your left second toe. You had an amputation of this toe performed by Dr. Adame. because of the bone infection we recommend 2 weeks of antibiotic therapy. You will be taking vancomycin 1.75 g every 12 hours. This medication will be administered at home and home care will be providing teaching as well as PICC line cares. 2. Follow-up with Dr. Adame next week as scheduled. 3. I have placed a referral to home health care services. They will help ease your transition from the hospital to home and will be assisting in your administration of home IV antibiotics. 4. Please seek medical attention if you develop fever greater than 101, have persistent vomiting, severe diarrhea or develop redness, swelling or increasing drainage from your foot. - Discharge Plan Prescriptions/Med Rec: Acetaminophen/HYDROcodone [[place] 325-5 MG] 1 tab PO Q4H PRN #20 tablet PRN Reason: Pain Vancomycin/0.9 % Sod Chloride [Vanco 1.75 G/250 ml-0.9% NaCl] 1.75 gm IV Q12H # 24 plast..bag Home Medications: Home Meds Aspirin [Adult Low Dose Aspirin EC] 81 mg PO DAILY 06/16/13 [History] Gabapentin [Neurontin] 1,200 mg PO BID 06/16/13 [History] Insulin Glarg,Human.Rec.Analog [Lantus] 65 unit SQ DAILY 06/16/13 [History] Cholecalciferol (Vitamin D3) [Vitamin D3] 5,000 unit PO DAILY 06/27/16 [History] Dulaglutide [Trulicity] 1.5 mg SQ WEEKLY 06/27/16 [History] Fluticasone Propionate [Flonase] 1 spray YAAKOV DAILY PRN 06/27/16 [History] Gemfibrozil [Lopid] 600 mg PO BID 06/27/16 [History] Sildenafil Citrate [Sildenafil] 100 mg PO ASDIRECTED PRN 06/27/16 [History] Enalapril [Vasotec] 5 mg PO DAILY 11/04/16 [History] metFORMIN HCl [Metformin HCl] 1,000 mg PO BIDAC 11/04/16 [History] Acetaminophen/HYDROcodone [[place] 325-5 MG] 1 tab PO Q4H PRN #20 tablet 11/07/16 [Rx] Vancomycin/0.9 % Sod Chloride [Vanco 1.75 G/250 ml-0.9% NaCl] 1.75 gm IV Q12H # 24 plast..bag 11/07/16 [Rx] Patient Handouts: Bone and Joint Infections, Adult, Vancomycin injection, PICC Home Guide Referrals: Dalton Adame DPM [Physician] - (follow up as scheduled next week ) - Discharge Summary/Plan Comment DC Time >30 min.: Yes (40 - coordinating home health care and follow-up) - Patient Data Vitals - Most Recent: Last Vital Signs Temp 34.9 C L 11/07/16 08:16 Pulse 75 11/07/16 08:16 Resp 18 11/07/16 08:16 BP 134/68 11/07/16 08:16 Pulse Ox 95 11/07/16 08:16 Weight - Most Recent: 91.626 kg I&O - Last 24 hours: Intake & Output 11/06/16 11/07/16 11/07/16 22:59 06:59 14:59 Intake Total 1343 897 Output Total 2400 1025 Balance -1057 -128 Med Orders - Current: Current Medications Acetaminophen (Tylenol) 650 mg PO Q4H PRN PRN Reason: Pain (Mild 1-3)/fever Hydrocodone Bitart/Acetaminophen ([place] 325-5 Mg) 1 tab PO Q4H PRN PRN Reason: Pain (moderate 4-6) Last Admin: 11/07/16 10:01 Dose: 1 tab Aspirin (Halfprin) 81 mg PO DAILY [facility] Last Admin: 11/07/16 09:40 Dose: 81 mg Gabapentin (Neurontin) 1,200 mg PO BID [facility] Last Admin: 11/07/16 09:39 Dose: 1,200 mg Gemfibrozil (Lopid) 600 mg PO BIDAC [facility] Last Admin: 11/07/16 09:40 Dose: 600 mg Meropenem 1 gm/ Sodium (Chloride) 50 mls @ 100 mls/hr IV Q8H [facility] Last Admin: 11/07/16 05:12 Dose: 100 mls/hr Sodium Chloride (Normal Saline) 1,000 mls @ 25 mls/hr IV ASDIRECTED [facility] Last Admin: 11/05/16 14:59 Dose: 25 mls/hr Vancomycin HCl 1.75 gm/ Sodium (Chloride) 250 mls @ 166.667 mls/hr IV Q12H [facility] Last Admin: 11/07/16 10:01 Dose: 166.667 mls/hr Insulin Aspart (Novolog) 0 unit SUBCUT ASDIRECTED [facility] PRN Reason: Protocol Last Admin: 11/07/16 09:42 Dose: 2 units Insulin Detemir (Levemir) 65 unit SUBCUT DAILY [facility] Last Admin: 11/07/16 09:43 Dose: 65 units Ondansetron HCl (Zofran Odt) 4 mg PO Q6H PRN PRN Reason: Nausea able to take PO Polyethylene Glycol (Miralax) 17 gm PO DAILY PRN PRN Reason: Constipation Senna/Docusate Sodium (Senna Plus) 1 tab PO BID PRN PRN Reason: Constipation Sodium Chloride (Saline Flush) 10 ml FLUSH ASDIRECTED PRN PRN Reason: Keep Vein Open Discontinued Medications Bupivacaine HCl (Marcaine 0.5%) Confirm Administered Dose 50 ml .ROUTE .STK-MED ONE Stop: 11/05/16 07:20 Last Admin: 11/05/16 09:10 Dose: 5 ml Fentanyl (Sublimaze) Confirm Administered Dose 100 mcg .ROUTE .STK-MED ONE Stop: 11/05/16 09:01 Gabapentin (Neurontin) 1,200 mg PO BID [facility] Last Admin: 11/04/16 20:22 Dose: 1,200 mg Gemfibrozil (Lopid) 600 mg PO BID [facility] Last Admin: 11/04/16 20:34 Dose: 600 mg Sodium Chloride (Normal Saline) 1,000 mls @ 125 mls/hr IV ASDIRECTED [facility] Last Admin: 11/05/16 03:48 Dose: 125 mls/hr Meropenem 1 gm/ Sodium (Chloride) 50 mls @ 100 mls/hr IV Q12H [facility] Last Admin: 11/05/16 05:14 Dose: 100 mls/hr Vancomycin HCl 1.5 gm/ Sodium (Chloride) 250 mls @ 150 mls/hr IV Q24H [facility] Last Admin: 11/04/16 20:20 Dose: 150 mls/hr Vancomycin HCl 1.5 gm/ Sodium (Chloride) 250 mls @ 166.667 mls/hr IV Q12H [facility] Last Admin: 11/06/16 10:47 Dose: 166.667 mls/hr Insulin Detemir (Levemir) 40 unit SUBCUT DAILY [facility] Last Admin: 11/05/16 10:42 Dose: 40 units Lidocaine HCl (Xylocaine 2%) Confirm Administered Dose 20 ml .ROUTE .STK-MED ONE Stop: 11/05/16 07:20 Last Admin: 11/05/16 09:10 Dose: 5 ml Midazolam HCl (Versed 1 Mg/Ml) Confirm Administered Dose 2 mg .ROUTE .STK-MED ONE Stop: 11/05/16 09:01 Pneumococcal Polyvalent Vaccine (Pneumovax 23) 0.5 ml IM .ONCE ONE Stop: 11/06/16 10:01 Propofol (Diprivan 20 Ml) Confirm Administered Dose 200 mg .ROUTE .STK-MED ONE Stop: 11/05/16 09:01 *Q Meaningful Use (DIS) - VTE *Q VTE Criteria *Q: VTE Mechanical Contraindications *Q: Bilateral Lower Dermatits VTE Pharmacological Contraindications *Q: Patient Scheduled Surgery - Stroke *Q Stroke Criteria *Q: - AMI *Q AMI Criteria *Q:
== END 2016-11-07 12:50 | disposition home health service (06) | DRG 617 ==
LOC: JP.MS 17:10 → EDSTATUS 11-05 08:30
PROVIDERS: ADMIT Internal Medicine; ATTEND Internal Medicine
PROC: 0Y6S0Z0 Detachment at Left 2nd Toe, Complete, Open Approach (ICD-10-PCS; principal; 2016-11-05)
PROC: 06HY33Z Insertion of Infusion Device into Lower Vein, Percutaneous Approach (ICD-10-PCS; principal; 2016-11-05)
DX: E11.69 Type 2 diabetes mellitus with other specified complication (principal); M86.272 Subacute osteomyelitis, left ankle and foot; Z79.4 Long term (current) use of insulin; N17.9 Acute kidney failure, unspecified; Z97.4 Presence of external hearing-aid; E11.40 Type 2 diabetes mellitus with diabetic neuropathy, unspecified; E11.21 Type 2 diabetes mellitus with diabetic nephropathy; G47.30 Sleep apnea, unspecified; Z87.891 Personal history of nicotine dependence; Z89.412 Acquired absence of left great toe; Z79.2 Long term (current) use of antibiotics; Z79.82 Long term (current) use of aspirin; Z88.8 Allergy status to other drugs, medicaments and biological substances
CPT/HCPCS: 36415; 80048; 80202; 82962; 83605; 85025; 85027; 85651; 87040; 88305; 88311; A9270-GY; C1751; J2185; J2250; J2704; J3010; J3370; J7040; J7050